=== PATIENT | male | born 1945 | race Caucasian/White ===

== ENCOUNTER 2021-08-22 01:06 | Inpatient (IN) | payer MEDICARE ==
[~2021-08-22] VITALS: Ht 182.9 cm; Wt 90.1 kg
--- NOTE | ~2021-08-22 | DS ---
[facility] [address] [place], [place] [address] Draft ADMISSION DATE: 08/24/2021 DISCHARGE DATE: 08/25/2021 REASON FOR ADMISSION: This 76-year-old white male lives in [place], [place] with his and essentially two days prior to current admission, began having symptoms suggestive of food impaction following the eating of a pecan muffin and sausage. He waited nearly a day plus before presented to the emergency room in [place], [place], in part related to his anxiety of public spaces. He was evaluated by Dr. King for this complaint. He had moderate discomfort in the epigastric area and episodic spitting up of saliva. He was intolerant of oral intake in any sort. A CT scan was performed, which confirmed a fair amount of food retained in the distal esophagus. Dr. King could not find any suitable referral hospital to accept him for management including [facility], [facility] and others. On that basis, he called me at approximately 11:00 p.m. He was transferred to [facility], given additional fluid resuscitation, anticipating further evaluation and treatment. PERTINENT PHYSICAL EXAMINATION: GENERAL: Showed an elderly man with home oxygen 2 L nasal cannula and a chronically ill appearance overall. NECK: Trachea is midline. He had no crepitus in the neck. CHEST: Reasonably clear with diminished breath sounds. ABDOMEN: Somewhat protuberant, with signs of ascites per se. There is no focal mass or tenderness. HOSPITAL COURSE: He was fluid resuscitated, having been seen by me at approximately 2:00 a.m. After fluid resuscitation, he underwent upper endoscopy where he was found to have an impressive amount of impacted food material particularly in the distal esophagus. 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 was slightly challenging the pass the scope into the stomach, which showed no other abnormality of the stomach or the duodenum. The scope was removed. The patient was admitted for further management, given the multiple passes in the esophagus required to allow for clearance of the impacted food bolus. He was treated with Carafate slurry to mitigate discomfort related to traumatic PATIENT NAME: TRINY GARCIA DISCHARGE SUMMARY DATE OF : 47 REPORT #: [id number] PHYSICIAN: MELANIE EMERY MD PCP: ELIZABETH ALMODOVAR MD REPORT IS CONFIDENTIAL AND NOT TO BE RELEASED WITHOUT AUTHORIZATION [facility] [address] [place], [place] [address] Draft challenges to the hypopharynx and so on. The patient had prompt improvement and began tolerating a liquid diet and ultimately a full liquid diet. I discussed candidly with him the clinical findings. It is noted that the CT scan performed in [place], did not show signs of metastatic disease or other imaging studies will necessarily be obtained to assess for distant metastatic disease. It was unclear to me that he would be a candidate for resection of this esophageal neoplasm, given his advanced underlying COPD, steroid dependency and home oxygen dependency. I did confer briefly with Dr. Rogers, who attends to see him in followup and Dr. Moralez, radiation therapist as well. I would foresee a neoadjuvant chemoradiation approach for palliation and for consideration of operative intervention if appropriate. At discharge, the patient is feeling much better. Tolerating clear liquids and full liquids and not being challenged with solid food at this time. DISCHARGE MEDICATIONS: Include: 1. Sucralfate 1 g dissolved in water p.o. q.i.d. to allow for continued healing of the esophagus. 2. Pantoprazole 40 mg p.o. daily. He will resume his usual medications, which include: 1. Asmanex one puff inhaler b.i.d. 2. Aspirin 81 mg p.o. daily. 3. Ativan 1 mg p.o. p.r.n. anxiety b.i.d. 4. Buspirone 10 mg p.o. b.i.d. 5. Ipratropium/albuterol sulfate metered-dose inhaler q.i.d. p.r.n. shortness of breath. 6. Prednisone 10 mg p.o. daily. 7. Simvastatin 40 mg p.o. daily. 8. two puffs inhaled daily. 9. Citalopram 20 mg p.o. daily. 10. Vitamin C 1000 mg p.o. daily. 11. Combivent respiratory inhaler spray one puff inhaled q.i.d. FOLLOW-UP PLANS: He is to return to see Dr. Roegrs and Dr. Moralez. It may come to pass if a Port-A-Cath would be needed, though not necessarily so especially in the near future. Careful consideration would have to be made and this to be the overall treatment plan for this man, who is markedly debilitated by pulmonary insufficiency of COPD. PATIENT NAME: TRINY GARCIA DISCHARGE SUMMARY DATE OF : 47 REPORT #: [id number] PHYSICIAN: MELANIE EMERY MD PCP: ELIZABETH ALMODOVAR MD REPORT IS CONFIDENTIAL AND NOT TO BE RELEASED WITHOUT AUTHORIZATION [facility] [address] [facility] [place], [place] [address] Draft DISCHARGE DIAGNOSIS: 1. Severe food impaction lasting greater than 48 hours; status post upper endoscopy and disimpaction of food with discovery of distal esophageal tumor. 2. Distal esophageal tumor. 3. Advanced chronic obstructive pulmonary disease, home oxygen dependent and steroid dependent. 4. Dyslipidemia. 5. Anxiety disorder. MD RADHA Martinez/NAZIAL /[id number] cc: MD Freddy Delaney MD, PH.D. Radha Barrera MD [facility] Copies: LUCIA ROGERS MD,FREDDY ~ PATIENT NAME: TRINY GARCIA DISCHARGE SUMMARY DATE OF : 47 REPORT #: [id number] PHYSICIAN: MELANIE EMERY MD PCP: ELIZABETH ALMODOVAR MD REPORT IS CONFIDENTIAL AND NOT TO BE RELEASED WITHOUT AUTHORIZATION
[2021-08-22] MEDS ORDERED: ASMANEX220 MCG INH (01:37)
[2021-08-22] MEDS ORDERED: ASPIRIN81 MG PO (01:38)
[2021-08-22] MEDS ORDERED: BUSPIRONE HCL10 MG PO (01:39)
[2021-08-22] MEDS ORDERED: ATIVAN1 MG PO (01:39)
[2021-08-22] MEDS ORDERED: CITALOPRAM HBR20 MG PO (01:40)
[2021-08-22] MEDS ORDERED: IPRAT-ALBUT 0.5-3 ML INH (01:41)
[2021-08-22] MEDS ORDERED: STRIVERDI RESPIM4 GM INH (01:42)
[2021-08-22] MEDS ORDERED: SIMVASTATIN40 MG PO (01:42)
[2021-08-22] MEDS ORDERED: PREDNISONE10 M1 PO (01:42)
--- OUTSIDE RECORDS SUMMARY | 2021-08-22 02:22 | XMS ---
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 Fernando VIS[facility] COUNT ([address] [facility] [address] [place] [address] TOTAL 4 NOTE: Visits indicate total known visits. ED/UCC VISIT TRACKING (12 MO.) 08/22/2021 01:07 [facility] [place] TYPE: Emergency COMPLAINT: - FOREIGN BODY 08/21/2021 17:33 [facility] [place] TYPE: Emergency COMPLAINT: - nausea/pain in diaphragm 09/17/2020 18:00 [facility] [place] TYPE: Emergency COMPLAINT: - L LOWER LEG INFECTION DIAGNOSES: - Dependence on supplemental oxygen - Hypertensive chronic kidney disease with stage 1 through stage 4 chronic kidney disease, or unspecified chronic kidney disease - Anxiety disorder, unspecified - End stage renal disease - Laceration without foreign body, left ankle, subsequent encounter - Nicotine dependence, other tobacco product, uncomplicated - Hyperlipidemia, unspecified - Laceration without foreign body, left lower leg, subsequent encounter - Chronic obstructive pulmonary disease, unspecified - Other half-way (current) drug therapy - Local infection of the skin and subcutaneous tissue, unspecified 08/29/2020 10:05 [facility] [place] TYPE: Emergency COMPLAINT: - FALL, LEFT ANKLE INJURY DIAGNOSES: - Laceration without foreign body, left ankle, initial encounter - Hyperlipidemia, unspecified - Laceration without foreign body, left lower leg, initial encounter - Laceration without foreign body, left lower leg, initial encounter - Unspecified place in unspecified non-institutional (private) residence as the place of occurrence of the external cause - Other predatory animal exterminator (current) drug therapy - Nicotine dependence, other tobacco product, uncomplicated - predatory animal exterminator (current) use of systemic steroids - Unspecified place in unspecified non-institutional (private) residence as the place of occurrence of the external cause - Agoraphobia, unspecified - prison (current) use of systemic steroids - Nicotine dependence, other tobacco product, uncomplicated - Other predatory animal exterminator (current) drug therapy - Dependence on supplemental oxygen - Essential (primary) hypertension - Difficulty in walking, not elsewhere classified - Difficulty in walking, not elsewhere classified - Fall on same level from slipping, tripping and stumbling with subsequent striking against unspecified sharp object, initial encounter - Hyperlipidemia, unspecified - Laceration without foreign body of left elbow, initial encounter - Urinary tract infection, site not specified - Laceration without foreign body of left elbow, initial encounter - Agoraphobia, unspecified - Essential (primary) hypertension - Laceration without foreign body, left ankle, initial encounter - Chronic obstructive pulmonary disease, unspecified - Dependence on supplemental oxygen - Fall on same level from slipping, tripping and stumbling with subsequent striking against unspecified sharp object, initial encounter - Urinary tract infection, site not specified - Chronic obstructive pulmonary disease, unspecified INPATIENT VISIT TRACKING (12 MO.) 09/19/2020 09:01 [facility] [place] TYPE: Medical Surgical DIAGNOSES: - Laceration without foreign body, left ankle, subsequent encounter - End stage renal disease - Anxiety disorder, unspecified - Cellulitis of left lower limb - End stage renal disease - Other predatory animal exterminator (current) drug therapy - Anxiety disorder, unspecified - Nicotine dependence, other tobacco product, uncomplicated - Laceration without foreign body, left ankle, subsequent encounter - Nicotine dependence, other tobacco product, uncomplicated - Hypertensive chronic kidney disease with stage 1 through stage 4 chronic kidney disease, or unspecified chronic kidney disease - Chronic obstructive pulmonary disease, unspecified - Cellulitis of left lower limb - Hyperlipidemia, unspecified - Hyperlipidemia, unspecified - Hypertensive chronic kidney disease with stage 1 through stage 4 chronic kidney disease, or unspecified chronic kidney disease - Laceration without foreign body, left lower leg, subsequent encounter - Other half-way (current) drug therapy - Chronic obstructive pulmonary disease, unspecified - Laceration without foreign body, left ankle, subsequent encounter - Laceration without foreign body, left lower leg, subsequent encounter 08/29/2020 11:41 [facility] [place] TYPE: Medical Surgical COMPLAINT: - COPD DIAGNOSES: - Laceration without foreign body of left elbow, initial encounter - Hyperlipidemia, unspecified - Agoraphobia, unspecified - Other chest pain - Other half-way (current) drug therapy - Urinary tract infection, site not specified - Chronic obstructive pulmonary disease, unspecified - Laceration without foreign body, left lower leg, initial encounter - Difficulty in walking, not elsewhere classified - Other half-way (current) drug therapy - Laceration without foreign body of left elbow, initial encounter - Encounter for immunization - Abrasion, left knee, initial encounter - Hyperlipidemia, unspecified - Laceration without foreign body, left ankle, initial encounter - Laceration without foreign body, left lower leg, initial encounter - Other chest pain - Abrasion, left knee, initial encounter - Essential (primary) hypertension - Agoraphobia, unspecified - Chronic obstructive pulmonary disease, unspecified - Essential (primary) hypertension - Urinary tract infection, site not specified - Difficulty in walking, not elsewhere classified - Laceration without foreign body, left lower leg, initial encounter - Laceration without foreign body, left ankle, initial encounter [email or web address]
[2021-08-22] MEDS ORDERED: CITALOPRAM HBR40 MG PO (15:51)
[2021-08-23] MEDS ORDERED: VITAMIN C1000 MG PO (17:10)
[2021-08-23] MEDS ORDERED: COMBIVENT RESPIM4 GM INH (17:12)
--- NOTE | 2021-08-24 17:30 | HP ---
[facility] [address] [place], [place] [address] Signed ADMISSION DATE: 08/22/2021 REASON FOR ADMISSION: Presumed food impaction. HISTORY OF PRESENT ILLNESS: This 76-year-old white man lives in [place], [place], and essentially 2 days ago began having symptoms suggestive of food impaction following eating a pecan muffin and sausage. He waited nearly a day plus before presenting to the emergency room in [place], [place], where he was evaluated by Dr. Sorto for this complaint. He had moderate discomfort in the epigastric area from this and episodic spitting up of saliva, but not much from the notes I have reviewed and discussions that had with the patient and the referring physician. He had been able to tolerate some coffee by mouth essentially yesterday morning, but no food was passed through. He did not have specific regurgitation of food necessarily either. His evaluation in the emergency room in [place] was suggestive of possible partial food impaction based on history and findings, and he underwent a CT scan in [place], which showed probable food impaction in the distal esophagus. The patient has had similar symptoms in the past, but not as advanced as this. He does note that he had significant ongoing gastroesophageal reflux years ago, which have not been as problematic in the past few years. He is on no medication for any reflux problem. He denies any family history of esophageal cancer and he himself has had no esophageal operation or antireflux surgery of any sort. Attempts by Dr. Sorto for assistance and management were denied including [facility] elsewhere and so forth. He called me at approximately 10 p.m. regarding the problem and plans were made for transfer to [facility] in [place]. That was about 10 o'clock last night. He appeared at [facility] at approximately 1 o'clock and was evaluated thoroughly by Dr. Ramos, emergency room physician at [facility]. His lab studies and a disk of his CT scan were included in his transfer paperwork. The patient was noted to be somewhat hypertensive and a bit tachycardic upon presentation. He has been given intravenous fluids by Dr. Ramos and is somewhat improved. At present, the patient does not have hypersalivation and his pain is rather minimal. He had been given glucagon in [place] and some pain medication. Electronically Signed By: MELANIE EMERY MD 08/24/210 PATIENT NAME: TRINY GARCIA HISTORY AND PHYSICAL DATE OF : 47 REPORT #: [id number] PHYSICIAN: MELANIE EMERY MD PCP: ELIZABETH ALMODOVAR MD REPORT IS CONFIDENTIAL AND NOT TO BE RELEASED WITHOUT AUTHORIZATION [facility] [address] [place], [place] [address] Signed The patient still feels there is something obstructive in the esophagus. His lab studies were relatively normal overall, although his white count was elevated to 14,600 at 6:15 p.m. last night. His platelets are normal at 457,000. Liver enzymes normal and creatinine normal at 0.90. PAST MEDICAL HISTORY: Notable for COPD and home oxygen dependent, 2 L nasal cannula oxygen continuously. He does take prednisone 10 mg daily and is on inhalers as well. The patient underwent a rapid COVID test in [place], which was negative and PCR test is pending in [place]. SOCIAL HISTORY: He is . His remains in [place] at this time. 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 REVIEW OF SYSTEMS: Denies any shortness of breath or chest pain. He has had chronic dysphagia worsened tonight obviously. Denies any hematemesis or blood per rectum. PHYSICAL EXAMINATION: GENERAL: Pleasant white man, who does look chronically ill, but not significant distress at this time. VITAL SIGNS: Temperature is 98.2; pulse initially 117, currently 104; respirations 19; blood pressure 163/89; pulse oximetry 2 L nasal cannula 96%. HEENT: He has a somewhat plethoric face, typical of chronic steroid use. NECK: Trachea is midline. He has no hoarseness. There is no jugular venous distention. CHEST: Shows normal respiratory excursion without tachypnea. ABDOMEN: With a poor muscle tone, somewhat mildly distended related to obesity rather than obstruction apparently. Abdominal palpation reveals no mass, tenderness, or ascites. EXTREMITIES: Show mild clubbing. There is a Kerlix wrap around his left ankle from a wound that has been grafted and is under wound care at home. The CT scan information is being loaded into the PACS system at the hospital at this time. ASSESSMENT: Electronically Signed By: MELANIE EMERY MD 08/24/21 3928 PATIENT NAME: TRINY GARCIA HISTORY AND PHYSICAL DATE OF : 47 REPORT #: [id number] PHYSICIAN: MELANIE EMERY MD PCP: ELIZABETH ALMODOVAR MD REPORT IS CONFIDENTIAL AND NOT TO BE RELEASED WITHOUT AUTHORIZATION [address] [address] Signed The patient is presumed to have a food impaction at distal esophagus, now essentially 48 hours old. He does not have hypersalivation and complete obstruction is less likely, though certainly possible. The CT scan findings had shown a dilated esophagus with fluid. He has had chronic reflux symptoms that may well have a simple inflammatory stricture with the possibility of neoplasia is relatively high as well. It is currently 2:30 in the morning and he has had this impaction for nearly 48 hours. We will plan for upper endoscopy under sedation plan of choice of anesthesia later in the morning. In the meantime, a PCR COVID test is pending. He is getting IV fluids, which will be beneficial as he has been with no reasonable oral intake for nearly 48 hours and will give stress dose steroids in the meantime as well as his inhalational therapies. The risks of bleeding, infection, perforation related upper endoscopy reviewed with him. MD RADHA Martinez/NAZIAL /[id number] cc: MD Dr. Macario Mcnally [place] Copies: MAGNOLIA RAMOS MD ~ Electronically Signed By: MELANIE EMERY MD 08/24/21 1730 PATIENT NAME: TRINY GARCIA HISTORY AND PHYSICAL DATE OF : 47 REPORT #: [id number] PHYSICIAN: MELANIE EMERY MD PCP: ELIZABETH ALMODOVAR MD REPORT IS CONFIDENTIAL AND NOT TO BE RELEASED WITHOUT AUTHORIZATION
--- NOTE | 2021-08-24 17:30 | OR ---
[facility] [address] [place], [place] [address] Signed DATE OF OPERATION: 08/22/2021 SURGEON: Melanie Emery MD PREOPERATIVE DIAGNOSES: 1. Complete food impaction distal esophagus. 2. Advanced home oxygen dependent chronic obstructive pulmonary disease. 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 PROCEDURES: 1. Esophagogastroduodenoscopy with biopsy. Prolonged complicated difficult. 2. Disimpaction of food from obstructed esophagus (difficult, complicated). ANESTHESIA: General endotracheal, Milla [place]ne CRNA INDICATIONS: This 76-year-old white man has COPD and is a patient Dr. Elizabeth Garcia. He lives in [place]. I was called at approximately 11:00. p.m. last night by Dr. King, [facility] noting that the patient has had food obstruction since at least the day prior to his presentation there. A CT scan had been performed, which showed obstruction and food impaction. He has had episodic and spitting up of saliva, but was not profoundly hypersalivating. Dr. King called [facility], [facility], and other places, none of which would accept the patient in transfer for evaluation. 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 He presented to the emergency room at our hospital approximately 2:00 a.m. Evaluation showed him to have reasonable comfort. He had not responded much to glucagon or other interventions. His electrolytes appeared to be normal. His hematocrit was normal as well. He has been fluid resuscitated and now is to undergo upper endoscopy and disimpaction of food impaction from the distal esophagus. The patient understands the risks of bleeding, infection, and most importantly perforation related to this and wished to proceed. Electronically Signed By: MELANIE EMERY MD 08/24/21 1730 PATIENT NAME: TRINY GARCIA OPERATIVE REPORT DATE OF : 47 REPORT #: [id number] PHYSICIAN: MELANIE EMERY MD PCP: ELIZABETH GARCIA MD REPORT IS CONFIDENTIAL AND NOT TO BE RELEASED WITHOUT AUTHORIZATION [facility] [address] [place], [place] [address] Signed FINDINGS: Indeed, he did have extensive food impaction of the distal esophagus. It appeared to be meat and onions and other things. It was clear that intravenous sedation alone may be inadequate for the extent of intervention necessary and on that basis was converted to a general endotracheal anesthetic, which he tolerated well. Disimpaction of the esophagus ultimately revealed the underlying cause, was that of esophageal neoplasm. This extended from approximately 36 cm to 40 cm. Ultimately, the infection was cleared, but it took nearly 2 hours and the stomach was able to be entered. There was no gastric outlet obstruction. The pylorus was normal. The tumor was at the GE junction and more proximally located. Multiple biopsies were taken to affirm that this represented neoplasm. DESCRIPTION OF PROCEDURE: The patient was brought to the endoscopy suite and placed in lateral decubitus position. The patient has been under stress dose steroid administration and bronchodilator therapy, given his underlying COPD. A bite block was placed. An Olympus video upper endoscope was passed in the hypopharynx and into the esophagus. In the distal part of the esophagus, there certainly was extensive impaction of what appeared to be meat. As it had over 48 hours of its impaction, it was soft and not easily able to be removed. Number of different measures were used to disimpact the esophagus, #3 prong grasper, basket snare, and over the scope suction cup device. Multiple passes were anticipated to be required and on that basis after the 1st few attempts after dislodgement of the food impaction, he was placed in the supine position, a general endotracheal anesthetic placed. By conclusion nearly 2 hours of work, the esophagus was cleared and quite obvious as the cause of the obstruction was esophageal tumor. This appeared to have 2 segments involved, one slightly more proximal at 36 cm. The other at the GE junction itself of 40 cm. The endoscope was able to negotiate this area and passed into the stomach. The stomach was insufflated and irrigated and pylorus evaluated and outlet obstruction was not present. The scope was retroflexed, which did not show a tumor ingress into the stomach itself. The scope was withdrawn and biopsies were taken of the offending lesions. The esophagus was essentially completely cleared by this point. Special care was taken to extract the particulates in the hypopharynx near the endotracheal tube. He was ultimately extubated without complication, taken to the recovery room in good condition. The operation was very prolonged, complicated, and difficult lasting nearly 2 hours. Electronically Signed By: MELANIE EMERY MD 08/24/21 3034 PATIENT NAME: TRINY GARCIA OPERATIVE REPORT DATE OF : 47 REPORT #: [id number] PHYSICIAN: MELANIE EMERY MD PCP: ELIZABETH GARCIA MD REPORT IS CONFIDENTIAL AND NOT TO BE RELEASED WITHOUT AUTHORIZATION [address] [address] Signed MD RADHA Martinez/MODL /[id number] cc: Dr. Fernando Gomez OR Elizabeth Garcia MD Copies: ELIZABETH GARCIA MD ~ Electronically Signed By: MELANIE EMERY MD 08/24/21 1730 PATIENT NAME: TRINY GARCIA OPERATIVE REPORT DATE OF : 47 REPORT #: [id number] PHYSICIAN: MELANIE EMERY MD PCP: ELIZABETH GARCIA MD REPORT IS CONFIDENTIAL AND NOT TO BE RELEASED WITHOUT AUTHORIZATION
[2021-08-25] MEDS ORDERED: PANTOPRAZOLE SO40 MG PO (11:22)
[2021-08-25] MEDS ORDERED: SUCRALFATE1 GM PO (11:22)
--- NOTE | 2021-08-26 15:33 | PATH ---
[facility] [address] [place], [place] [address] Signed THIS IS AN ADDENDUM REPORT SPECIMEN(S): A DISTAL LOW ESOPHAGEAL BIOPSY MASS SPECIMEN SOURCE: A. DISTAL LOW ESOPHAGEAL BIOPSY MASS CLINICAL HISTORY: GERD; distal esophageal obstruction/total esophageal obstruction; food impaction secondary to esophageal tumor FINAL PATHOLOGIC DIAGNOSIS: Distal esophageal tumor, biopsy: - Invasive adenocarcinoma, moderately differentiated. - See comment. COMMENT: Mismatch repair (MMR) testing by IHC has been ordered and will be reported in an addendum. As part of [facility] Quality Improvement Program, this case was reviewed by another member of our pathology staff (RADHIKA). A diagnostic alert was initiated by Dr. Rosas on 08/25/21 (Dr. Orourke's office to be called by [facility] Client Services Department). NAL:RADHIKA:cml:C1NR MICROSCOPIC EXAMINATION: Histologic sections of all submitted blocks are examined by light microscopy. These findings, together with the gross examination, support the pathologic diagnosis. GROSS DESCRIPTION: The specimen, labeled "PS, biopsy distal esophageal tumor," is received in formalin and consists of multiple ragged, crowley to brown, friable tissue fragments from less than 0.1 up to 2.9 cm in greatest dimension. A grossly definitive resection margin is not identified. The specimen is submitted in toto in two cassettes (A1-A2). AI (under the direct supervision of a pathologist) The Gross Description was prepared using a voice recognition system. The report was reviewed for accuracy; however, sound-alike word errors, addition and/or deletions may occur. If there is any question about this report, please contact Client Services. PATIENT NAME: TRINY GARCIA PATHOLOGY DATE OF : 47 REPORT #: [id number] PHYSICIAN: ALISON PATHOLOGY PCP: ELIZABETH ALMODOVAR MD REPORT IS CONFIDENTIAL AND NOT TO BE RELEASED WITHOUT AUTHORIZATION [facility] [address] [place] [address] Signed PERFORMING LABORATORY: The technical component was performed by [facility], [address] [place] [id number] (Neck Pinner: Bailey Santamaria MD; CLIA# [id number]). [facility] [address] [address] (CLIA# [id number]). ADDITIONAL NOTES: Immunohistochemical and/or in situ hybridization studies were performed on this case with the appropriate positive controls that react as expected. This test was developed and its performance characteristics determined by [facility]. It has not been cleared or approved by the U.S. Food and Drug Administration. The FDA has determined that such clearance or approval is not necessary. This test is used for clinical purposes. It should not be regarded as investigational or for research. [facility] is certified under the Clinical Laboratory Improvement Amendments of 1988 (CLIA) as qualified to perform high complexity clinical laboratory testing. REASON FOR ADDENDUM: To add results of additional testing. ADDENDUM PATHOLOGIC DIAGNOSIS: Distal esophagus, invasive adenocarcinoma, microsatellite instability testing by IHC: - MLH1: Intact nuclear expression. - MSH2: Intact nuclear expression. - MSH6: Intact nuclear expression. - PMS2: Intact nuclear expression. INTERPRETATION: Normal pattern. Tumor cells show no loss of nuclear expression of MMR proteins. This correlates with a low probability of microsatellite instability. However, if there is a high clinical suspicion for Bucio syndrome (hereditary non-polyposis colorectal carcinoma syndrome) in this patient, additional testing should be considered. Please contact [facility] if such testing is indicated. NAL:cml ADDENDUM MICROSCOPIC EXAMINATION: A panel of four antibodies is selected which will detect 95% of microsatellite unstable carcinomas. Testing is performed at the request of Estelle Rosas M.D. PATIENT NAME: TRINY GARCIA PATHOLOGY DATE OF : 47 REPORT #: [id number] PHYSICIAN: ALISON PATHOLOGY PCP: ELIZABETH ALMODOVAR MD REPORT IS CONFIDENTIAL AND NOT TO BE RELEASED WITHOUT AUTHORIZATION [facility] [address] [place], [place] [address] Signed Block: A2. Recut HE slide is prepared from the block. The presence of neoplastic glands and non-neoplastic internal control glands or stroma is confirmed. Internal control cells for MLH1, MSH2, PMS2 and MSH6 are positive. Neoplastic gland cells show the following: - MLH1: Positive. - MSH2: Positive. - MSH6: Positive. - PMS2: Positive. NAL:cml [place] [facility], [address] [facility] [address] (IA# [id number]). Diagnostician: Estelle Rosas MD Pathologist Electronically Signed 08/26/2021 Copies: ~ PATIENT NAME: RADHATRINY Kurt PATHOLOGY DATE OF : 47 REPORT #: [id number] PHYSICIAN: ALISON FERNANDEZ PCP: ELIZABETH ALMODOVAR MD REPORT IS CONFIDENTIAL AND NOT TO BE RELEASED WITHOUT AUTHORIZATION
== END 2021-08-25 14:30 | disposition home or self-care (01) | DRG 375 ==
LOC: ED 01:06 → MS 01:08
PROVIDERS: ADMIT Surgery; ATTEND Surgery
PROC: 0DC38ZZ Extirpation of Matter from Lower Esophagus, Via Natural or Artificial Opening Endoscopic (ICD-10-PCS; 2021-08-22)
PROC: 0DB38ZX Excision of Lower Esophagus, Via Natural or Artificial Opening Endoscopic, Diagnostic (ICD-10-PCS; principal; 2021-08-22 09:03)
DX: C16.0 Malignant neoplasm of cardia (principal); F19.20 Other psychoactive substance dependence, uncomplicated; T18.128A Food in esophagus causing other injury, initial encounter; Z20.822 Contact with and (suspected) exposure to COVID-19; J44.9 Chronic obstructive pulmonary disease, unspecified; E78.5 Hyperlipidemia, unspecified; K21.9 Gastro-esophageal reflux disease without esophagitis; F41.9 Anxiety disorder, unspecified; Z99.81 Dependence on supplemental oxygen; I10 Essential (primary) hypertension; Z79.899 Other long term (current) drug therapy; Z98.890 Other specified postprocedural states; K22.2 Esophageal obstruction
CPT/HCPCS: 94640; 94760; 94762; 96372; 96374; 96376; 99285; A9270-GY; C9113; C9803; G0378; J0131; J0330; J1100; J1644; J1720; J2370; J2704; J7121; J7512; U0003

== ENCOUNTER 2022-05-04 05:35 | Day surgery (SDC) | payer MEDICARE ==
[~2022-05-04] VITALS: Ht 182.9 cm; Wt 87.3 kg
[~2022-05-04 05:35] MED LIST: ASMANEX220 MCG INH; ASPIRIN81 MG PO; ATIVAN1 MG PO; BUSPIRONE HCL10 MG PO; CITALOPRAM HBR20 MG PO; CITALOPRAM HBR40 MG PO; COMBIVENT RESPIM4 GM INH; IPRAT-ALBUT 0.5-3 ML INH; PANTOPRAZOLE SO40 MG PO; PREDNISONE10 M1 PO; SIMVASTATIN40 MG PO; STRIVERDI RESPIM4 GM INH; SUCRALFATE1 GM PO; VITAMIN C1000 MG PO
--- NOTE | 2022-05-04 09:16 | NUR ---
LE 0650: SILK SCREEN OPERATOR NOTIFIED OF ELEVATED HEART RATE. EKG ORDERED, SHOWING SVT. SILK SCREEN OPERATOR ADMINISTERS 7.5MG OF LABETALOL AND 10MG OF ESMOLOL. BOTH MEDICATIONS PROVE TO BE EFFECTIVE IN DROPPING HIS HEART RATE FROM 190S TO 88-95BPM. AN ADDED EFFECT HIS BP DROPS TO 130S/80S. ROUGHLY 30 MINUTES LATER A SECOND EKG IS ADMINISTERED TO SHOW SINUS RHYTHUM WITH SVT COMPLEXES. PT IS ASYMPTOMATIC THE DURATION. HE IS MONITORED FOR ANOTHER HOUR OR SO AND REMAINS STABLE, HIS HEART RATE DOES JUMP UP TO THE 170S, BUT HE IS ABLE TO COMPENSATE HIMSELF BACK DOWN TO 88-95BPM.
--- NOTE | 2022-05-04 09:23 | NUR ---
05/04/22 0923 Luciana Miranda 0856-PATIENT ARRIVED TO PACU ON 6L MASK NONAROUSABLE RR EVEN. ST HR 109 IVF INFUSING. BP AUTOMATIC NOT READING ON LEFT ARM. MANUAL BP COMPLETED AND 62/50 ON LEFT ARM. JACQUES BREWSTER AT BEDSIDE ADMINISTERED EPHEDRINE IVP. PATIENT THEN BECAME REACTIVE TO JAW THRUST TO AWAKEN. HOB WAS LOWERED 0903-PATIENT REACTIVE TO VERBAL STIMULI OPENING EYES BP INCREASED TO 103/85 DENIES PAIN OR NAUSEA. 6L MASK RR EVEN HOB ELEVATED. PATIENT USED ALBUTEROL THIS AM AND PER CANDY SEPARATOR ENROBING EDUCATE ON CHECKING PULSE ON PULSE OXIMETER AT HOME. 0905-PATIENT AWAKE DENIES PAIN OR NAUSEA. O2 SAT INCREASED ABOVE 90% RR EVEN ON 6L MASK. PATIENT USES O2 AT HOME. 09-PATIENT AWAKE PLACED ON 4L NC O2 SAT 97% RR EVEN. IVF INFUSING 0921-PATIENT AWAKE DENIES PAIN OR NAUSEA. REPORTS "DRINKS 4 CUPS OF COFFEE/DAY" REPORTS USES 3L NC AT HOME AND 4L WITH TRAVELING. 4L NC 99% RR EVEN.
--- NOTE | 2022-05-05 09:48 | OR ---
[facility] [address] [place], [place] [address] Signed DATE OF OPERATION: 05/04/2022 SURGEON: Melanie Emery MD PREOPERATIVE DIAGNOSES: 1. Unresectable distal esophageal cancer status post chemoradiation therapy (Dr. Silver and Dr. Moralez). 2. History of esophageal obstruction with food impaction (initial diagnosis) August 22, 2021. 3. Advanced chronic obstructive pulmonary disease and multiple medical problems. POSTOPERATIVE DIAGNOSES: Distal esophageal ulceration and low-grade neoplasm without obstruction. PROCEDURE: Esophagogastroduodenoscopy with biopsies. ANESTHESIA: Intravenous sedation; propofol infusion, Kevin Haider CRNA. INDICATION: This 76-year-old white man has numerous medical problems most dominantly end-stage COPD. He presented to the hospital with food obstruction and impaction was received in transfer and underwent upper endoscopy by me on August 22, 2021 showing extensive food impaction. Relief of the obstruction was undertaken endoscopically and biopsies confirmed clinical suspicion of distal esophageal neoplasm. The patient was considered not a candidate for operative intervention. He did undergo palliative radiation and chemotherapy under the direction of Dr. Moralez and Dr. Silver. The patient has had remarkable improvement of his symptoms; he currently has no significant dysphagia. The patient additionally has been identified as having PSVT this morning upon presentation to the hospital, which abated spontaneously. Conference with an anesthesia provider, Kevin Alvarez CRNA confirms we will proceed with the endoscopy mindful that beta trina administration may be required if he should have recurrent PSVT. FINDINGS: Ulcerative changes were noted in the distal esophagus consistent with neoplasm as well as chemo and radiation therapy. There was evidence of persistent neoplasm, but no sign Electronically Signed By: MELANIE EMERY MD 05/05/22 0948 PATIENT NAME: TRINY GARCIA OPERATIVE REPORT DATE OF : 47 REPORT #: [id number] PHYSICIAN: MELANIE EMERY MD PCP: ELIZABETH GARCIA MD REPORT IS CONFIDENTIAL AND NOT TO BE RELEASED WITHOUT AUTHORIZATION [facility] [address] [place], [place] [address] Signed of obstruction and pliability of the distal esophagus was good. The stomach and duodenum were normal. Biopsies were taken of the distal esophageal ulcerative areas to confirm neoplasm. The mid esophagus and proximal esophagus were normal. Vocal cords were normal. DESCRIPTION OF PROCEDURE: The patient was brought to the surgical endoscopy suite and placed in the supine position with head elevated somewhat. Given his advanced COPD, recent PSVT and so forth, his supine position was deemed most appropriate for endoscopy today. A bite block was placed. He was given intravenous sedation with propofol infusional technique with full cardiopulmonary monitoring. An Olympus video upper endoscope was passed in the hypopharynx. Vocal cords were visualized as normal. The scope was easily passed in the esophagus. Proximal esophagus and midportion were normal. Approaching the distal esophagus, one could see a whitish probably ulcerated area on one side of the esophagus and somewhat ulcerated and chronically scarred neoplastic areas elsewhere. The scope was easily passed into the esophagus. Stomach was insufflated with air. Rugal folds were found to be normal as was the pylorus. The scope was passed through into the duodenal which was normal. Scope was withdrawn and retroflexed view undertaken showing no sign of neoplasm on the gastric side of the GE junction. Scope was withdrawn to the distal esophagus with its ulcerative neoplastic appearing tissue and multiple biopsies were obtained. The scope was further withdrawn. The midesophagus appeared normal. Scope was removed and the patient was taken to the recovery room in good condition having suffered no complication. Notably, the patient was given intravenous beta-trina agent during the procedure for transient heart rate of 130, which was extremely short lived. CONCLUDING DIAGNOSES: Persistent distal esophageal neoplasm, currently with abdominal ulceration, but no sign of obstruction to passage of scope or clinical concerns regarding swallowing at this time. He would be considered a candidate for esophageal stent should his symptoms recur or progression of disease occur if considered unlikely to benefit from additional radiation and/or chemotherapy. PLAN: He will return to the ongoing care of Dr. Elizabeth Garcia, Dr. Moralez and Dr. Vamshi Silver. Electronically Signed By: MELANIE EMERY MD 05/05/22 0948 PATIENT NAME: TRINY GARCIA OPERATIVE REPORT DATE OF : 47 REPORT #: [id number] PHYSICIAN: MELANIE EMERY MD PCP: ELIZABETH GARCIA MD REPORT IS CONFIDENTIAL AND NOT TO BE RELEASED WITHOUT AUTHORIZATION [facility] [address] [place], [place] [address] Signed Melanie Emery MD JM/MODL /[id number] cc: MD Vamshi Rios MD Copies: ELIZABETH GARCIA MD, ROBERT C MD ~ Electronically Signed By: MELANIE EMERY MD 05/05/22 0948 PATIENT NAME: TRINY GARCAI OPERATIVE REPORT DATE OF : 47 REPORT #: [id number] PHYSICIAN: MELANIE EMERY MD PCP: ELIZABETH GARCIA MD REPORT IS CONFIDENTIAL AND NOT TO BE RELEASED WITHOUT AUTHORIZATION
--- NOTE | 2022-05-06 16:55 | PATH ---
[facility] [address] [place], [place] [address] Signed SPECIMEN(S): A DISTAL ESOPHAGEAL BIOPSY SPECIMEN SOURCE: A. DISTAL ESOPHAGEAL BIOPSY CLINICAL HISTORY: History of malignant tumor of esophagus. Postop diagnosis: Persistent improved distal esophageal cancer FINAL PATHOLOGIC DIAGNOSIS: Distal esophageal biopsy: - Invasive moderately-differentiated adenocarcinoma with abundant ulceration and necrosis. - See comment. COMMENT: The patient's history of invasive adenocarcinoma of the esophagus is noted. Mismatch repair testing by IHC was performed on the initial diagnosis () and was reported as "normal pattern". HER2 at that time was also reported as negative for amplification by FISH. As part of [facility]' Quality Improvement Program, this case was reviewed by another member of our pathology staff. EDUAR:DS:lorraine:C1NR MICROSCOPIC EXAMINATION: Histologic sections of all submitted blocks are examined by light microscopy. These findings, together with the gross examination, support the pathologic diagnosis. GROSS DESCRIPTION: The specimen, labeled "PS, 1," and designated on the requisition "distal esophagus biopsy," is received in formalin and consists of three fragments of white-crowley tissue (0.3 to 0.4 cm in greatest dimension). The specimen is submitted entirely in cassette A1. AC (under the direct supervision of a pathologist) The Gross Description was prepared using a voice recognition system. The report was reviewed for accuracy; however, sound-alike word errors, addition and/or deletions may occur. If there is any question about this report, please contact Client Services. PERFORMING LABORATORY: PATIENT NAME: TRINY GARICA PATHOLOGY DATE OF : 47 REPORT #: [id number] PHYSICIAN: ALISON FERNANDEZ PCP: ELIZABETH ALMODOVAR MD REPORT IS CONFIDENTIAL AND NOT TO BE RELEASED WITHOUT AUTHORIZATION [address] [address] Signed The technical component was performed by [facility], [address] [place] [address] (CLIA# [id number]). Professional interpretation was performed by [email or web address] [address] [address] (CLIA#: [id number]). Diagnostician: Orlando Gottlieb MD Pathologist Electronically Signed 05/06/2022 Copies: ~ PATIENT NAME: TRINY GARCIA PATHOLOGY DATE OF : 47 REPORT #: [id number] PHYSICIAN: ALISON FERNANDEZ PCP: ELIZABETH ALMODOVAR MD REPORT IS CONFIDENTIAL AND NOT TO BE RELEASED WITHOUT AUTHORIZATION
--- NOTE | 2022-05-06 19:26 | EKG ---
[facility] [address] [facility] [place] [address] Signed Supraventricular tachycardia Marked ST abnormality, possible inferior subendocardial injury Abnormal ECG No previous ECGs available Confirmed by Asif Crockett MD () on 05/06/2022 7:26:19 PM Electronically Signed By: ASIF CROCKETT MD 05/06/221925 PATIENT NAME: RADHATRINY Electrocardiogram DATE OF : 47 PHYSICIAN: ASIF CROCKETT MD REPORT #: [id number] REPORT IS CONFIDENTIAL AND NOT TO BE RELEASED WITHOUT AUTHORIZATION
--- NOTE | 2022-05-06 19:27 | EKG ---
[facility] [address] [facility] [place] [address] Signed Sinus rhythm with premature supraventricular complexes Nonspecific ST abnormality Abnormal ECG When compared with ECG of 04-MAY-2022 06:54, (Unconfirmed) premature supraventricular complexes are now present Vent. rate has decreased BY [address] no longer depressed in Inferior leads ST no longer depressed in Anterolateral leads T wave inversion no longer evident in Inferior leads T wave inversion no longer evident in Anterolateral leads Confirmed by Asif Crockett MD () on 05/06/2022 7:26:59 PM Electronically Signed By: ASIF CROCKETT MD 05/06/221926 PATIENT NAME: TRINY GARCIA Electrocardiogram DATE OF : 47 PHYSICIAN: ASIF CROCKETT MD REPORT #: [id number] REPORT IS CONFIDENTIAL AND NOT TO BE RELEASED WITHOUT AUTHORIZATION
--- NOTE | 2022-05-06 19:41 | EKG ---
[facility] [address] [facility] [place] [address] Signed Atrial fibrillation with rapid ventricular response ST \T\ T wave abnormality, consider inferior ischemia Abnormal ECG Confirmed by Asif Crockett MD () on 05/06/2022 7:41:41 PM Electronically Signed By: ASIF CROCKETT MD 05/06/221940 PATIENT NAME: TRINY GARCIA Kurt Electrocardiogram DATE OF : 47 PHYSICIAN: ASIF CROCKETT MD REPORT #: [id number] REPORT IS CONFIDENTIAL AND NOT TO BE RELEASED WITHOUT AUTHORIZATION
== END 2022-05-04 11:53 | disposition home or self-care (01) ==
LOC: DS 05:35
PROVIDERS: ATTEND Surgery
PROC: 0DB58ZX Excision of Esophagus, Via Natural or Artificial Opening Endoscopic, Diagnostic (ICD-10-PCS; principal; 2022-05-04 07:30)
DX: C15.9 Malignant neoplasm of esophagus, unspecified (principal); J44.9 Chronic obstructive pulmonary disease, unspecified; I10 Essential (primary) hypertension; K22.10 Ulcer of esophagus without bleeding
CPT/HCPCS: 00731; 88305; 93005; 93010; J2704; J3010; J7121